=== PATIENT | female | born 1940 | race Caucasian/White ===

== ENCOUNTER 2021-11-19 14:17 | Emergency (ER) | payer BC ==
[~2021-11-19] VITALS: Ht 152.4 cm; Wt 59.0 kg
[2021-11-19 14:26] VITALS: BP 143/83
[2021-11-19] MEDS ORDERED: LET SOLN TOPICAL 8 ML UDC TP ONE ×2 (14:58→15:00)
--- NOTE | 2021-11-19 15:00 | NUR ---
[employer] AT BEDSIDE FOR WOUND CLEANING
--- NOTE | 2021-11-19 17:15 | NUR ---
Patient discharged to home in stable condition. Written and verbal after care instructions given. Patient verbalizes understanding of instruction.
== END 2021-11-19 17:39 | disposition home or self-care (01) ==
LOC: ER 14:29
DX: S51.802A Unspecified open wound of left forearm, initial encounter (principal); Z86.73 Personal history of transient ischemic attack (TIA), and cerebral infarction without residual deficits; I48.91 Unspecified atrial fibrillation; Z88.5 Allergy status to narcotic agent; Z88.2 Allergy status to sulfonamides; Z88.8 Allergy status to other drugs, medicaments and biological substances; W18.30XA Fall on same level, unspecified, initial encounter; Y93.89 Activity, other specified; Y92.89 Other specified places as the place of occurrence of the external cause; Y99.8 Other external cause status
CPT/HCPCS: 12002; 99283; A6253 ×3; A6403 ×2